=== PATIENT | male | born 1995 | race Caucasian/White ===

== ENCOUNTER 2020-11-28 08:24 | Emergency (ER) | payer OTHER ==
[~2020-11-28] VITALS: Ht 182.9 cm; Wt 112.7 kg
[2020-11-28] MEDS ORDERED: ONDANSETRON 4MG/2ML VIAL IV ONE (08:35)
[2020-11-28] MEDS: MORPHINE 2 MG/ML 1ML VIAL (J2270) IV PRN ×2 (08:40→09:31)
--- NOTE | 2020-11-28 09:07 | REP ---
INDICATION: trauma. COMPARISON: None. TECHNIQUE: 5 mm contiguous transaxial sections were obtained from the skull base to the cerebral convexities. FINDINGS: The ventricles and sulci are consistent with the patient's age. There are no extra-axial fluid collections. There is no mass effect. In the right frontal lobe deep cerebral white matter there is a 5 mm sized focus of increased density. There is no surrounding edema. The orbital and petrous structures, cerebellopontine angles, and posterior fossa are unremarkable. The sella turcica, cavernous, and paracavernous structures are essentially unremarkable. The visualized portions of the paranasal sinuses shows a small soft tissue density in the right maxillary sinus likely a mucous retention cyst. There are no abnormal air-fluid levels. IMPRESSION: Possible tiny deep white matter petechial hemorrhage in the right frontal lobe as described above. Phone call was placed to the emergency department and this was discussed with Dr. Ana Campos. <Electronically signed by Domingo Jensen > 11/28/20 0903
--- NOTE | 2020-11-28 09:16 | REP ---
INDICATION: trauma. COMPARISON: None. TECHNIQUE: 2 x 2 mm increments using helical technique and reconstructed in both sagittal and coronal planes FINDINGS: Vertebral body height and alignment is within normal limits. The disc spaces are symmetric and well maintained. The facet joints are well aligned bilaterally no acute fracture, dislocation, or subluxation is seen involving the cervical spine. There is a cortical irregularity seen involving the proximal aspect of the left 2nd rib. The proximal most portion of the left 1st rib is somewhat obscured by motion artifact. An additional tiny fracture cannot be ruled out. Lung window technique through this region shows a possible tiny left apical pneumothorax. IMPRESSION: 1. There is no evidence of a cervical spine fracture. 2. Left-sided rib fracture and possible rib fracture with possible concomitant left-sided pneumothorax as described above. <Electronically signed by Domingo Jensen > 11/28/20 0970
--- NOTE | 2020-11-28 09:20 | REP ---
INDICATION: trauma. COMPARISON: None. TECHNIQUE: Five views FINDINGS: Five views of the left ribs shows a possible fracture of the left 2nd rib poorly imaged on this plain film exam. IMPRESSION: Possible plain film evidence of a possible left 2nd rib fracture, however, previous CT obtained earlier today showed a cortical irregularity of the left 2nd rib consistent with a fracture. If the patient is getting a chest CT this could show additional fractures that plain radiography cannot. <Electronically signed by Domingo Jensen > 11/28/20 0949
--- NOTE | 2020-11-28 09:21 | REP ---
INDICATION: trauma. COMPARISON: None. TECHNIQUE: Four views FINDINGS: No acute fracture or destructive osseous lesion. IMPRESSION: No acute osseous abnormality <Electronically signed by Domingo Jensen > 11/28/20 0944
--- NOTE | 2020-11-28 09:22 | REP ---
INDICATION: trauma. COMPARISON: None. TECHNIQUE: Three views of the left shoulder were performed. FINDINGS: The acromioclavicular and glenohumeral relationships are within normal limits. There is no acute fracture or destructive osseous lesion. Please see the rib series report in the C-spine CT report for possible additional findings. IMPRESSION: As above <Electronically signed by Domingo Jensen > 11/28/20 0919
[2020-11-28 09:44] LABS: BASO # 0.1 10^3/uL (0.0-0.2); BASO % 0.3 % (0.0-1.0); EOS % 0.1 % (0.0-3.0); HEMATOCRIT 41.2 % (42.0-52.0); HEMOGLOBIN 13.5 g/dl (13.5-17.5); LYMPH # 1.3 10^3/uL (1.5-5.0); LYMPH % 6.9 % (24.0-44.0); MEAN CORPUSCULAR HEMOGLOBIN 29.7 pg (27.0-33.0); MEAN CORPUSCULAR HGB CONC 32.8 g/dl (32.0-36.5); MEAN CORPUSCULAR VOLUME 90.5 fl (80.0-96.0); MONO # 1.2 10^3/uL (0.0-0.8); MONO % 6.2 % (2.0-8.0); NEUTROPHILS # 15.9 10^3/uL (1.5-8.5); PLATELET COUNT, AUTOMATED 183 10^3/uL (150-450); RED BLOOD COUNT 4.55 10^6/uL (4.30-6.10); WHITE BLOOD COUNT 18.5 10^3/uL (4.0-10.0)
--- OUTSIDE RECORDS SUMMARY | 2020-11-28 09:44 | CCD ---
Author Author [facility] Organization [facility] Address Unknown Phone Unavailable Support Name Relationship Address Phone [facility] Next Of Kin [address] [place] [address] Unavailable LESA SHANNON Next Of Kin [id number] [place] [address] Re-disclosure Warning The records that you are about to access may contain information from federally-assisted alcohol or drug abuse programs. If such information is present, then the following federally mandated warning applies: This information has been disclosed to you from records protected by federal confidentiality rules (42 CFR part 2). The federal rules prohibit you from making any further disclosure of this information unless further disclosure is expressly permitted by the written consent of the person to whom it pertains or as otherwise permitted by 42 CFR part 2. A general authorization for the release of medical or other information is NOT sufficient for this purpose. The Federal rules restrict any use of the information to criminally investigate or prosecute any alcohol or drug abuse patient.The records that you are about to access may contain highly sensitive health information, the redisclosure of which is protected by Article 27-F of the [facility] Public Health law. If you continue you may have access to information: Regarding HIV / AIDS; Provided by facilities licensed or operated by the [facility] Office of Mental Health; or Provided by the [facility] Office for People With Developmental Disabilities. If such information is present, then the following [facility] mandated warning applies: This information has been disclosed to you from confidential records which are protected by state law. State law prohibits you from making any further disclosure of this information without the specific written consent of the person to whom it pertains, or as otherwise permitted by law. Any unauthorized further disclosure in violation of state law may result in a fine or snf sentence or both. A general authorization for the release of medical or other information is NOT sufficient authorization for further disc losure. Immunizations Vaccine Date Status Description Data Source(s) COVID-19 VACCINE Errol 06/30/2020 12:00:00 AM EDT completed [facility] Vaccine Series Complete: YESThis Data wa s Submitted to [facility] Via [facility]. Medications No Information Insurance Providers Payer name Policy type / Coverage type Policy ID Covered constitution party ID Covered constitution party's relationship to joshi Policy Joshi Plan Information [facility] [id number] Problems, Conditions, and Diagnoses No Information Surgeries/Procedures No Information Results No Information Social History No Information
[2020-11-28] MEDS ORDERED: ISOVUE-370 76% 100ML VIAL As Ordered ONE (09:54)
--- NOTE | 2020-11-28 10:33 | REP ---
INDICATION: trama COMPARISON: None. TECHNIQUE: Standard helical technique after the intravenous administration of 100 cc Isovue 370 FINDINGS: There is no mediastinal or hilar adenopathy. There are no pleural or pericardial effusions. Bone window technique throughout the examination shows a fracture involving the proximal aspect of the left 1st rib, 2 fractures involving the left 2nd rib both proximally and distally, and a fracture involving the proximal aspect of the left 4th rib. There is a possible mild anterior wedge deformity involving T8 the age of which cannot be determined. Evaluation of the lung bruner shows a tiny left apical pneumothorax. Patchy opacities are seen in the left lower lobe likely subsegmental atelectatic changes. Lung bruner are otherwise clear. IMPRESSION: 1. Multiple left-sided rib fractures as described above. 2. Possible minimal grade 1 anterior compression deformity of T8 the age of which cannot be determined. There is no involvement of the posterior cortex. 3. Tiny left apical pneumothorax and left basilar opacities most consistent with subsegmental atelectatic changes. <Electronically signed by Domingo Jensen > 11/28/20 [id number]
--- NOTE | 2020-11-28 10:39 | REP ---
INDICATION: trauma. COMPARISON: None. TECHNIQUE: Standard helical technique after the intravenous administration of 100 cc Isovue 370 FINDINGS: The liver, gallbladder, spleen, pancreas, adrenal glands, and kidneys are within normal limits. The abdominal aorta and para-aortic regions are within normal limits. The bowel loops and the mesenteries are within normal limits. There is no free fluid or free air. There is no evidence of a mass or adenopathy. The lung bases show patchy left lower lobe opacities likely subsegmental atelectatic changes and there is a tiny left anterior pneumothorax. Bone window technique throughout the exam shows no additional fractures. Please see the CT of the chest report. IMPRESSION: There is no acute intra-abdominal or intrapelvic disease. Other findings as described above. <Electronically signed by Domingo Jensen > 11/28/20 8757
[2020-11-28 10:42] LABS: ALT/SGPT 50 U/L (12-78); AMYLASE 17 U/L (25-115); BILIRUBIN,TOTAL 0.5 MG/DL (0.2-1.0); BLOOD UREA NITROGEN 9 MG/DL (7-18); CALCIUM LEVEL 8.9 MG/DL (8.5-10.1); CARBON DIOXIDE LEVEL 25 MEQ/L (21-32); CHLORIDE LEVEL 106 MEQ/L (98-107); CREATININE FOR GFR 1.08 MG/DL (0.70-1.30); GLOMERULAR FILTRATION RATE > 60.0 (>60); GLUCOSE, FASTING 99 MG/DL (70-100); LIPASE 50 U/L (73-393); POTASSIUM SERUM 3.5 MEQ/L (3.5-5.1); SODIUM LEVEL 139 MEQ/L (136-145); TOTAL PROTEIN 6.8 GM/DL (6.4-8.2)
[2020-11-28 11:21] LABS: RSV AMPLIFICATION NEGATIVE (NEGATIVE)
[2020-11-28 11:27] VITALS: BP 117/86
== END 2020-11-28 11:35 | disposition short-term general hospital (02) ==
LOC: EDBD 08:24 → M ED 08:24
DX: S22.42XA Multiple fractures of ribs, left side, initial encounter for closed fracture (principal); M25.512 Pain in left shoulder; M25.531 Pain in right wrist; W14.XXXA Fall from tree, initial encounter; Y92.828 Other wilderness area as the place of occurrence of the external cause; Y93.9 Activity, unspecified; Y99.9 Unspecified external cause status; J93.9 Pneumothorax, unspecified; R91.8 Other nonspecific abnormal finding of lung field; R93.0 Abnormal findings on diagnostic imaging of skull and head, not elsewhere classified
CPT/HCPCS: 70450; 71100; 71260; 72125; 73030; 73110; 74177; 80053; 82150; 83690; 85025; 86850; 86900; 86901; 87631; 96374; 96375; 99285; J2270; J2405; Q9967

== ENCOUNTER 2022-03-13 09:26 | Emergency (ER) | payer OTHER ==
[~2022-03-13] VITALS: Ht 182.9 cm; Wt 124.2 kg
[2022-03-13] MEDS ORDERED: IBUP80TA PO ×2 (14:29→14:34)
[2022-03-13] MEDS ORDERED: AMOX875T2 PO ×2 (14:29→14:34)
[2022-03-13] MEDS ORDERED: CIPR7.5D5 OTIC ×2 (14:29→14:34)
[2022-03-13 14:44] VITALS: BP 138/84
== END 2022-03-13 14:45 | disposition home or self-care (01) ==
LOC: M ED 09:26
DX: H92.02 Otalgia, left ear (principal); H61.23 Impacted cerumen, bilateral; F10.10 Alcohol abuse, uncomplicated; Z79.2 Long term (current) use of antibiotics; Z79.1 Long term (current) use of non-steroidal anti-inflammatories (NSAID)